=== PATIENT | female | born 1970 | race Caucasian/White ===

== ENCOUNTER 2017-05-09 07:13 | Emergency (ER) | payer MEDICARE, OTHER ==
[~2017-05-09] VITALS: Ht 162.6 cm; Wt 69.5 kg
[~2017-05-09 07:13] MED LIST: CALCIUM 600MG+D1 TAB PO; DESYREL 50MG50 MG PO; DOXYCYCLINE 10100 MG PO; EFFEXOR XR75 MG/CAP PO; MAXALT5 MG PO; MOTRIN 600600 MG/TAB PO; MULTI VITAMINS1 TAB PO; VITAMIN D1000 IU PO; VITAMINC1000TA; XANAX 0.5MG0.5 MG PO; hydrocodone
[2017-05-09 07:14] VITALS: TEMP 98.8
[2017-05-09 07:37] LABS: PH 5 (5-8); SQUAMOUS EPITHELIAL None Seen /hpf; URINE APPEARANCE Clear; URINE BACTERIA None Seen /hpf; URINE BILIRUBIN Negative (NEGATIVE); URINE BLOOD Negative (NEGATIVE); URINE COLOR Yellow; URINE GLUCOSE Negative (NEGATIVE); URINE KETONE Negative (NEGATIVE); URINE RBC 0-2 /hpf; URINE UROBILINOGEN Negative (NEGATIVE); URINE WBC 0-2 /hpf
[2017-05-09 07:42] LABS: BASO % 0.5 % (0.0-2.0); EOS # 0.1 (0.0-0.7); EOS % 1.1 % (0-4.0); GRAN # 3.8 (1.4-6.5); GRAN % 59.9 % (42.2-75.2); HEMOGLOBIN 13.8 g/dl (12.5-16.0); LYMPH % 31.8 % (20.0-51.0); MEAN CELL VOLUME 89 fl (80.0-100.0); MEAN CORPUSCULAR HEMOGLOBIN 31 pg (27.0-31.0); MEAN CORPUSCULAR HGB CONC 35 g/dl (33.0-37.0); MEAN PLATELET VOLUME 10.6 fl (7.4-10.4); MONO # 0.4 (0.1-0.6); MONO % 6.5 % (1.7-9.3); PLATELET COUNT 204 K/mm3 (130-400); RED BLOOD COUNT 4.39 M/mm3 (4.10-5.30); REDCELL DISTRIBUTION WIDTH-CV 12.2 % (11.5-14.5); WHITE BLOOD COUNT 6.3 K/mm3 (4.8-10.8)
[2017-05-09 07:52] LABS: ADJUSTED CALCIUM 8.9 mg/dL (8.4-10.2); ALBUMIN 4.1 gm/dL (3.5-5.0); BILIRUBIN,TOTAL 0.6 mg/dL (0.0-1.0); CREATININE, serum 0.59 mg/dL (0.52-1.25); POTASSIUM 3.9 mmol/L (3.4-5.0); TOTAL PROTEIN 6.8 gm/dL (6.4-8.2)
[2017-05-09] MEDS ORDERED: ULTRAM 50MG TAB50 MG PO (08:33)
[2017-05-09 09:02] VITALS: BP 139/87; PULSE 70
== END 2017-05-09 09:03 | disposition home or self-care (01) ==
LOC: COL.ER 07:13
PROVIDERS: Emergency Medicine
DX: S36.62XA Contusion of rectum, initial encounter (principal); E11.9 Type 2 diabetes mellitus without complications; Z79.84 Long term (current) use of oral hypoglycemic drugs; X50.0XXA Overexertion from strenuous movement or load, initial encounter; Y92.39 Other specified sports and athletic area as the place of occurrence of the external cause
CPT/HCPCS: J2405; J3010; J7030; Q9967

== ENCOUNTER 2018-01-16 03:14 | Emergency (ER) | payer MEDICARE, OTHER ==
[~2018-01-16] VITALS: Ht 165.1 cm; Wt 65.9 kg
[~2018-01-16 03:14] MED LIST changes: +ULTRAM 50MG TAB50 MG PO
[2018-01-16 03:18] VITALS: BP 144/87; TEMP 97.9
[2018-01-16] MEDS ORDERED: B COMPLEX #11 TA1 PO (03:24)
[2018-01-16 04:21] VITALS: PULSE 57
[2018-01-16] MEDS ORDERED: LIDODERM 5% PATC1 EA TP (04:22)
[2018-01-16] MEDS ORDERED: PREDNISONE20 MG PO (04:22)
== END 2018-01-16 04:33 | disposition home or self-care (01) ==
LOC: COL.ER 03:14
DX: S46.912A Strain of unspecified muscle, fascia and tendon at shoulder and upper arm level, left arm, initial encounter (principal); Z98.84 Bariatric surgery status
CPT/HCPCS: J7512

== ENCOUNTER 2018-02-04 12:04 | Emergency (ER) | payer MEDICARE, OTHER ==
[~2018-02-04] VITALS: Ht 162.6 cm; Wt 65.9 kg
[~2018-02-04 12:04] MED LIST changes: +B COMPLEX #11 TA1 PO; +LIDODERM 5% PATC1 EA TP; +PREDNISONE20 MG PO
[2018-02-04 12:08] VITALS: BP 142/81; TEMP 97.6
[2018-02-04 12:35] LABS: HEMATOCRIT 38.5 % (37.0-47.0); HEMOGLOBIN 13.3 g/dl (12.5-16.0); MEAN CELL VOLUME 91 fl (80.0-100.0); MEAN CORPUSCULAR HEMOGLOBIN 32 pg (27.0-31.0); MEAN CORPUSCULAR HGB CONC 35 g/dl (33.0-37.0); MEAN PLATELET VOLUME 9.6 fl (7.4-10.4); PLATELET COUNT 286 K/mm3 (130-400); RED BLOOD COUNT 4.22 M/mm3 (4.10-5.30); REDCELL DISTRIBUTION WIDTH-CV 12.7 % (11.5-14.5)
[2018-02-04 12:53] LABS: ALBUMIN 4.2 gm/dL (3.5-5.0); BILIRUBIN,TOTAL 0.8 mg/dL (0.0-1.0); CALCIUM 9.4 mg/dL (8.4-10.2); CREATININE, serum 0.84 mg/dL (0.52-1.25); POTASSIUM 4.1 mmol/L (3.4-5.0); TOTAL PROTEIN 7.4 gm/dL (6.4-8.2)
[2018-02-04] MEDS ORDERED: ZOFRAN ODT4 MG PO (13:45)
[2018-02-04 14:19] LABS: COLLECTION METHOD CLEAN CATCH
[2018-02-04 14:23] LABS: PH 5 (5-8); SQUAMOUS EPITHELIAL None Seen /hpf; URINE APPEARANCE Clear; URINE BACTERIA None Seen /hpf; URINE BILIRUBIN Negative (NEGATIVE); URINE BLOOD Negative (NEGATIVE); URINE COLOR Straw; URINE GLUCOSE Negative (NEGATIVE); URINE KETONE Negative (NEGATIVE); URINE LEUKOCYTE ESTERASE Negative (NEGATIVE); URINE NITRATE Negative (NEGATIVE); URINE PROTEIN(semi-quant) Negative (NEGATIVE); URINE RBC None Seen /hpf; URINE UROBILINOGEN Negative (NEGATIVE)
[2018-02-04 14:31] VITALS: PULSE 76
== END 2018-02-04 14:31 | disposition home or self-care (01) ==
LOC: COL.ER 12:04
PROVIDERS: Emergency Medicine
DX: E86.0 Dehydration (principal); Z98.51 Tubal ligation status
CPT/HCPCS: J2405; J7030

== ENCOUNTER 2018-03-20 16:21 | Emergency (ER) | payer MEDICARE, OTHER ==
[~2018-03-20] VITALS: Ht 162.6 cm; Wt 63.6 kg
[~2018-03-20 16:21] MED LIST changes: +ZOFRAN ODT4 MG PO
[2018-03-20 16:30] VITALS: TEMP 98.1
[2018-03-20] MEDS ORDERED: MAXALT5 MG PO (17:11)
[2018-03-20 17:50] VITALS: BP 136/77; PULSE 63
== END 2018-03-20 17:52 | disposition home or self-care (01) ==
LOC: COL.ER 16:21
DX: S60.012A Contusion of left thumb without damage to nail, initial encounter (principal); F32.9 Major depressive disorder, single episode, unspecified; F41.9 Anxiety disorder, unspecified; G47.00 Insomnia, unspecified; V19.9XXA Pedal cyclist (driver) (passenger) injured in unspecified traffic accident, initial encounter

== ENCOUNTER 2018-05-16 17:53 | Emergency (ER) | payer MEDICARE, OTHER ==
[~2018-05-16] VITALS: Ht 162.6 cm; Wt 62.7 kg
[2018-05-16 18:00] VITALS: BP 147/84; TEMP 97.5
[2018-05-16 19:10] VITALS: PULSE 53
== END 2018-05-16 19:10 | disposition home or self-care (01) ==
LOC: COL.ER 17:53
DX: S46.912A Strain of unspecified muscle, fascia and tendon at shoulder and upper arm level, left arm, initial encounter (principal); F41.9 Anxiety disorder, unspecified; F32.9 Major depressive disorder, single episode, unspecified; G47.00 Insomnia, unspecified; X50.1XXA Overexertion from prolonged static or awkward postures, initial encounter
CPT/HCPCS: J1885

== ENCOUNTER 2019-09-19 14:30 | Emergency (ER) | payer MEDICARE, OTHER ==
[~2019-09-19] VITALS: Ht 162.6 cm; Wt 65.9 kg
[2019-09-19 15:23] VITALS: BP 110/80; TEMP 97.7
[2019-09-19 19:55] LABS: BASO % 0.5 % (0.0-2.0); EOS # 0.1 (0.0-0.7); EOS % 1.7 % (0-4.0); GRAN % 51.8 % (42.2-75.2); HEMATOCRIT 41.2 % (37.0-47.0); HEMOGLOBIN 14.3 g/dl (12.5-16.0); LYMPH # 2.2 (1.2-3.4); LYMPH % 36.9 % (20.0-51.0); MEAN CELL VOLUME 91 fl (80.0-100.0); MEAN CORPUSCULAR HEMOGLOBIN 32 pg (27.0-31.0); MEAN CORPUSCULAR HGB CONC 35 g/dl (33.0-37.0); MEAN PLATELET VOLUME 10.2 fl (7.4-10.4); MONO # 0.5 (0.1-0.6); MONO % 9.1 % (1.7-9.3); PLATELET COUNT 264 K/mm3 (130-400); RED BLOOD COUNT 4.54 M/mm3 (4.10-5.30); REDCELL DISTRIBUTION WIDTH-CV 13.1 % (11.5-14.5)
[2019-09-19 20:02] LABS: CALCIUM 9.4 mg/dL (8.4-10.2); CREATININE, serum 0.57 (0.52-1.25); POTASSIUM 3.3 mmol/L (3.4-5.0)
[2019-09-19 20:32] LABS: TSH w REFLEX 4.45 uIU/mL (0.465-4.680)
[2019-09-19 21:00] VITALS: PULSE 70
== END 2019-09-19 21:00 | disposition home or self-care (01) ==
LOC: COL.ER 14:30
PROVIDERS: Physician Assistant
DX: R00.2 Palpitations (principal)

== ENCOUNTER 2020-08-10 09:59 | Emergency (ER) | payer MEDICARE, OTHER ==
[~2020-08-10] VITALS: Ht 165.1 cm; Wt 63.6 kg
[2020-08-10 10:05] VITALS: BP 117/65; TEMP 97.6
[2020-08-10] MEDS ORDERED: NORCO 325 MG-51 TAB PO (10:35)
[2020-08-10] MEDS ORDERED: MEDROL 4MG DOSPA4 MG PO (10:35)
[2020-08-10 10:44] VITALS: PULSE 66
== END 2020-08-10 10:44 | disposition home or self-care (01) ==
LOC: COL.ER 09:59
DX: M25.511 Pain in right shoulder (principal); Z88.5 Allergy status to narcotic agent; Z88.6 Allergy status to analgesic agent

== ENCOUNTER 2021-10-08 06:50 | Emergency (ER) | payer MEDICARE, OTHER ==
[~2021-10-08] VITALS: Ht 162.6 cm; Wt 65.9 kg
[~2021-10-08 06:50] MED LIST changes: +MEDROL 4MG DOSPA4 MG PO; +NORCO 325 MG-51 TAB PO
[2021-10-08 07:00] VITALS: BP 135/55; TEMP 97.8
[2021-10-08] MEDS ORDERED: CEPHALEXIN500 M1 PO (07:16)
[2021-10-08 07:27] VITALS: PULSE 52
== END 2021-10-08 07:28 | disposition other institution (70) ==
LOC: COL.ER 06:50
DX: I80.9 Phlebitis and thrombophlebitis of unspecified site (principal); Z87.891 Personal history of nicotine dependence

== ENCOUNTER 2021-12-22 07:06 | Emergency (ER) | payer MEDICARE, OTHER ==
[~2021-12-22] VITALS: Ht 165 cm; Wt 65.9 kg
[~2021-12-22 07:06] MED LIST changes: +CEPHALEXIN500 M1 PO
[2021-12-22 07:30] VITALS: TEMP 96.9
[2021-12-22 07:55] LABS: BASO % 0.4 % (0.0-2.0); EOS % 0.8 % (0.0-4.0); GRAN % 56.4 % (42.2-75.2); HEMATOCRIT 38.8 % (37.0-47.0); HEMOGLOBIN 13.6 g/dl (12.5-16.0); LYMPH # 1.8 K/mm3 (1.2-3.4); LYMPH % 34.6 % (20.0-51.0); MEAN CELL VOLUME 90 fl (80.0-100.0); MEAN CORPUSCULAR HEMOGLOBIN 32 pg (27-31); MEAN CORPUSCULAR HGB CONC 35 g/dl (33.0-37.0); MEAN PLATELET VOLUME 9.9 fl (7.4-10.4); MONO # 0.4 K/mm3 (0.1-0.6); MONO % 7.6 % (1.7-9.3); PLATELET COUNT 236 K/mm3 (130-400); RED BLOOD COUNT 4.31 M/mm3 (4.10-5.30); REDCELL DISTRIBUTION WIDTH-CV 12.5 % (11.5-14.5)
[2021-12-22 08:12] LABS: ALANINE AMINOTRANSFERASE 21 U/L (0-55); ALBUMIN 3.8 gm/dL (3.5-5.0); ALKALINE PHOSPHATASE 66 U/L (40-150); ANION GAP 9 mmol/L (7-16); AST,SGOT 30 U/L (5-34); BILIRUBIN,TOTAL 0.4 mg/dL (0.2-1.2); BLOOD UREA NITROGEN 16 mg/dL (7-19); CALCIUM 8.7 mg/dL (8.4-10.2); CARBON DIOXIDE 27 mmol/L (22-29); CHLORIDE 105 mmol/L (98-107); CREATININE, serum 0.71 mg/dL (0.57-1.11); GLUCOSE 98 mg/dL (70-99); LIPASE 46 U/L (8-78); POTASSIUM 4.4 mmol/L (3.5-4.5); SODIUM 141 mmol/L (136-145); TOTAL PROTEIN 6.7 gm/dL (6.2-8.1)
[2021-12-22 08:16] LABS: COLLECTION METHOD CLEAN CATCH
[2021-12-22 08:19] LABS: TROPONIN-I < 0.010 ng/mL (0.00-0.033)
[2021-12-22 08:26] LABS: PH 6 (5-8); SQUAMOUS EPITHELIAL None Seen /hpf (0-10); URINE APPEARANCE Clear (CLEAR/HAZY); URINE BACTERIA None Seen /hpf (NONE SEEN); URINE BILIRUBIN Negative (NEGATIVE); URINE BLOOD Negative (NEGATIVE); URINE COLOR Straw (YELLOW); URINE GLUCOSE Negative (NEGATIVE); URINE KETONE Negative (NEGATIVE); URINE LEUKOCYTE ESTERASE Negative (NEGATIVE); URINE NITRATE Negative (NEGATIVE); URINE PROTEIN(semi-quant) Negative (NEGATIVE); URINE RBC 0-2 /hpf (0-2); URINE UROBILINOGEN Negative (NEGATIVE)
[2021-12-22] MEDS ORDERED: PEPCID 20MG TAB20 MG PO (08:36)
[2021-12-22 08:50] VITALS: BP 131/82; PULSE 55
== END 2021-12-22 08:50 | disposition home or self-care (01) ==
LOC: COL.ER 07:06
PROVIDERS: Emergency Medicine
DX: I44.7 Left bundle-branch block, unspecified (principal); Z98.890 Other specified postprocedural states; Z32.02 Encounter for pregnancy test, result negative